=== PATIENT | male | born 1975 | race Caucasian/White ===

== ENCOUNTER 2019-03-09 21:17 | Inpatient (IN) | payer MEDICAID, OTHER ==
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
[2019-03-10 00:50] LABS: Glucose,Whole Blood 125 mg/dL (75-99)
[2019-03-10 00:53] LABS: Amphetamine Screen,Urine Detected (NotDetected); Barbiturate Screen,Urine Not Detected (NotDetected); Benzodiazepines Screen,Urine Not Detected (NotDetected); Cocaine Screen,Urine Not Detected (NotDetected); Methadone Screen, Urine Not Detected (NotDetected); Opiate Screen,Urine Not Detected (NotDetected); Oxycodone Screen, Urine Not Detected (NotDetected); Phencyclidine Screen,Urine Not Detected (NotDetected); Tricyclic Antidepressant,Urine Not Detected (NotDetected); Urn Cannabinoid Scrn Detected (NotDetected)
[2019-03-10] MEDS ORDERED: MAG HYDROX/AL HYDROX/SIMETH 30 ML CUP PO PRN (03:15)
[2019-03-10] MEDS ORDERED: ZIPRASIDONE 20 MG VIAL IM PRN (03:15)
[2019-03-10] MEDS ORDERED: MAGNESIUM HYDROXIDE 2,400 MG/10 ML CUP PO PRN (03:15)
[2019-03-10] MEDS: NICOTINE 14MG/24HR PATCH TRANSDERM SCH (09:28)
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
[2019-03-10] MEDS ORDERED: LISINOPRIL 20 MG TAB PO STA (15:08)
--- NOTE | 2019-03-10 15:15 | P.HPMEDMHU ---
History of Present Illness H&P Date: 03/10/19 Chief Complaint: MHU HPI The patient is a 43-year-old male with a past medical history of essential hypertension type 2 diabetes who is admitted to the inpatient psychiatry unit after being petitioned by police apparently the patient has been reporting suicidal ideation reporting that he wanted to kill himself and was found to be intoxicated on arrival to the ED, after sobering up the patient mentioned recent separation from his of 18 years approximately 2 weeks ago and since then has been doing drugs and renting a room from her friend. The patient reports being out of his metformin for the last week he does not know his A1c and see last saw his PCP approximately a year ago. She denies being on any medications for his hypertension, he denies any chest pain, denies shortness of breath, denies focal weakness or slurred speech, he denies any paresthesias numbness and tingling in his legs or any of his extremities. Patient has no somatic complaints today. In the ER he had a UDS performed was positive for amphetamines and THC, review of his vital signs indicate elevated blood pressures. Review of Systems Pertinent positives per HPI all other review is otherwise negative Past Medical History Past Medical History: Diabetes Mellitus, Hypertension History of Any Multi-Drug Resistant Organisms: None Reported Additional Past Surgical History / Comment(s): vasectomy Past Psychological History: Anxiety, Depression Smoking Status: Current every day smoker Past Alcohol Use History: Occasional Past Drug Use History: Marijuana, Methamphetamine Medications and Allergies Home Medications Medication Instructions Recorded Confirmed Type ARIPiprazole [Abilify] 10 mg PO DAILY 03/10/19 03/10/19 History DULoxetine HCL [Cymbalta] 60 mg PO BID 03/10/19 03/10/19 History Dextroamphetamine/Amphetamine 25 mg PO QAM 03/10/19 03/10/19 History [Adderall Xr] Dextroamphetamine/Amphetamine 10 mg PO DAILY 03/10/19 03/10/19 History [Adderall] OXcarbazepine [Trileptal] 150 mg PO BID 03/10/19 03/10/19 History Allergies Allergy/AdvReac Type Severity Reaction Status Date / Time No Known Allergies Allergy Verified 03/10/19 12:02 Physical Exam Vitals: Vital Signs Temp Pulse Pulse Resp BP BP Pulse Ox 03/10/19 05:48 98.2 F 96 16 145/94 03/10/19 03:21 100 18 188/58 95 03/09/19 21:18 98.5 F 111 H 20 135/93 100 Intake and Output 03/09/19 03/10/19 03/10/19 22:59 06:59 14:59 Other: Weight 70.307 kg 68 kg Constitutional: No acute distress, conversant, pleasant Eyes: Anicteric sclerae, moist conjunctiva, no lid-lag, PERRLA ENMT: NC/AT,Oropharynx clear, no erythema, exudates Neck:Supple, FROM, no masses, or JVD, No carotid bruits; No thyromegaly Lungs: Clear to auscultation, Clear to percussion, Normal respiratory effort, no accessory muscle use Cardiovascular: Heart regular in rate and rhythm, No murmurs, gallops, or rubs no peripheral edema Abdominal: Soft Nontender, nom distended, no guarding, no rebound or rigidity, Normoactive bowel sounds No hepatomegaly, No splenomegaly, No palpable mass No abdominal wall hernia noted Skin: Normal temperature, tone, texture, turgor, No induration No subcutaneous nodules, No rash, lesions, No ulcers Extremities:No digital cyanosis No clubbing, Pedal pulses intact and symmetrical Radial pulses intact and symmetrical Normal gait and station, No calf tenderness Psychiatric: Alert and oriented to person, flat affect suicidal ideation or poor judgment and insight Neuro: Muscles Strength 5/5 in all 4 extremities, Sensation to light touch grossly present throughout, Cranial nerves II-XII grossly intact. No focal sensory deficits Cranial Nerve Examination - Cranial Nerves Cranial Nerve II- Optic: Intact Cranial Nerve III- Oculomotor: Intact Cranial Nerve IV- Trochlear: Intact Cranial Nerve V- Trigeminal: Intact Cranial Nerve - Abducens: Intact Cranial Nerve VII- Facial: Intact Cranial Nerve VIII- Auditory: Intact Cranial Nerve IX- Glossopharyngeal: Intact Cranial Nerve X- Vagus: Intact Cranial Nerve XI- Accessory: Intact Cranial Nerve XII- Hypoglossal: Intact Results Labs: Abnormal Lab Results - Last 24 Hours (Table) 03/10/19 03/10/19 Range/Units 00:30 00:40 POC Glucose (mg/dL) 125 H (75-99) mg/dL Ur Amphetamines Screen Detected H (NotDetected) U Marijuana (THC) Screen Detected H (NotDetected) Assessment and Plan Assessment: Uncontrolled hypertension Type 2 diabetes ADHD Marijuana abuse Depression with suicidal ideation Adjustment disorder Plan: The patient is admitted to acute inpatient psychiatry team after being petitioned by police with suicidal ideation, will defer to inpatient team regarding ongoing psychotropic and cognitive behavioral therapies. Medically the patient blood pressure is elevated and uncontrolled we'll initiate him on lisinopril 20 mg PO daily, awaiting urinalysis, and A1c. We'll find out his previous metformin dose and initiate him on that therapy. I will continue to follow his clinical course. Appreciate this consult and operation to be involved in this patient's ongoing care. For further questions please not hesitate to contact the [facility] inpatient team
[2019-03-11 08:47] LABS: ALT 15 U/L (4-49); AST 25 U/L (17-59); African American GFR (CKD) >90 (>60 ml/min/1.73 sqM); Albumin 4.5 g/dL (3.5-5.0); Alkaline Phosphatase 90 U/L (38-126); Anion Gap 9 mmol/L; Bilirubin, Delta 0.2 mg/dL (0.0-0.2); Bilirubin,Unconjugated 0.5 mg/dL (0.0-1.1); Blood Urea Nitrogen 11 mg/dL (9-20); Calcium 9.9 mg/dL (8.4-10.2); Carbon Dioxide 28 mmol/L (22-30); Chloride 103 mmol/L (98-107); Cholesterol 161 mg/dL (<200); Glucose 200 mg/dL (74-99); HDL Cholesterol 47 mg/dL (40-60); LDL Cholesterol,Calculated 78 mg/dL (0-99); Non-African American GFR(CKD) >90 (>60 ml/min/1.73 sqM); Potassium 4.5 mmol/L (3.5-5.1); Sodium 140 mmol/L (137-145); Total Bilirubin 0.7 mg/dL (0.2-1.3); Total Protein 7.2 g/dL (6.3-8.2); Triglycerides 182 mg/dL (<150)
[2019-03-11 09:03] LABS: Basophils # (A) 0.1 k/uL (0-0.2); Basophils % (A) 1 %; Eosinophils # (A) 0.2 k/uL (0-0.7); Eosinophils % (A) 4 %; HCT 48.2 % (39.0-53.0); HGB 16.4 gm/dL (13.0-17.5); Lymphocytes # (A) 1.4 k/uL (1.0-4.8); Lymphocytes % (A) 21 %; MCH 32.8 pg (25.0-35.0); MCV 96.3 fL (80.0-100.0); Mean Platelet Volume 8.2; Monocytes # (A) 0.3 k/uL (0-1.0); Monocytes % (A) 5 %; Neutrophils # (A) 4.5 k/uL (1.3-7.7); Neutrophils % (A) 68 %; Platelet Count 299 k/uL (150-450); WBC 6.6 k/uL (3.8-10.6)
[2019-03-11] MEDS: NICOTINE 14MG/24HR PATCH TRANSDERM SCH (09:24)
[2019-03-11] MEDS: LISINOPRIL 20 MG TAB PO SCH (09:25)
[2019-03-11] MEDS: LORazepam 1 MG TAB PO PRN ×2 (09:30→18:25)
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
[2019-03-11] MEDS: OXcarbazepine 150 MG TAB PO SCH ×2 (13:17→21:53)
[2019-03-11] MEDS: ARIPiprazole 10 MG TAB PO SCH (13:50)
[2019-03-11] MEDS: ESCITALOPRAM 5 MG TAB PO SCH (13:50)
[2019-03-11 20:52] LABS: Hemoglobin A1C 6.9 % (4.0-6.0)
[2019-03-12] MEDS: ESCITALOPRAM 5 MG TAB PO SCH (08:12)
[2019-03-12] MEDS: NICOTINE 14MG/24HR PATCH TRANSDERM SCH (08:12)
[2019-03-12] MEDS: LISINOPRIL 20 MG TAB PO SCH (08:12)
[2019-03-12] MEDS: ARIPiprazole 10 MG TAB PO SCH (08:12)
[2019-03-12] MEDS: OXcarbazepine 150 MG TAB PO SCH ×2 (08:12→22:10)
[2019-03-12] MEDS: LORazepam 1 MG TAB PO PRN ×2 (08:13→17:58)
--- NOTE | 2019-03-12 19:24 | P.PN ---
Progress Note - Text Progress Note Date: 03/12/19 interval history: Patient again is seen in cross coverage today. He talks about wanting to be able to be discharged. He has been talking to his . He feels like his mood is doing fine. He slept well last night. He does not voice any adverse psychotropic medication side effects. We did talk about looking at a support meeting being set up for him. He states that he would be following up with his outpatient psychiatrist and counselor. Mental status exam: He is alert and cooperative with the interview. His mood him she relays is doing fine. He does not verbalize any thoughts of harm to self or others. No evidence of psychosis or agitation. His affect overall is restricted. His thought processes are organized. Plan: Patient will be maintained on current psychotropic medication regimen. He seems to be tolerating the Lexapro well. Continue to monitor for any medication side effects and monitor ongoing response to treatment. He is inquiring regarding discharge planning, we did discuss him looking at setting up a support meeting.
[2019-03-13] MEDS: OXcarbazepine 150 MG TAB PO SCH ×2 (08:39→21:20)
[2019-03-13] MEDS: ARIPiprazole 10 MG TAB PO SCH (08:39)
[2019-03-13] MEDS: LISINOPRIL 20 MG TAB PO SCH (08:39)
[2019-03-13] MEDS: NICOTINE 14MG/24HR PATCH TRANSDERM SCH (08:40)
[2019-03-13] MEDS: ESCITALOPRAM 5 MG TAB PO SCH (08:41)
--- NOTE | 2019-03-13 13:59 | P.CON ---
Consult Note - . Consult date: 03/13/19 Assessment/Plan:: Chief complaint: "I don't need to be here " Subjective: The patient has been seen today as follow-up, chart reviewed, case discussed with the treatment team. Patient slept about 6 hours last night. Patient has not been going to groups and other unit activities. Patient reports fair appetite. Patient was fixated on discharge and generally minimizes psychiatric symptoms. He was talking about the reason for his admission because he was misunderstood and he never been suicidal. Patient reports having an outpatient psychiatrist and willing to continue his outpatient psychiatric treatment after discharge. He denies suicidal or homicidal ideation and he denies feeling depressed, hopeless, or worthless. He expressed feeling angry about his admission, and he is willing to submit 72 hours letter to be discharged. The patient is compliant with his medications and denies any adverse reactions. The patient denies any manic symptoms including sustained period of time with elevated or irritable mood, impulsive or irrational behavior, inflated self- esteem, or absence need to sleep due to increases goal-directed activities. The patient denies any auditory or visual hallucinations. Also the patient denies any paranoid ideation. Objective: Vitals has been reviewed. Mental status examination; Appearance: The patient appears stated age, fairly groomed, average body built, no specific features. Gait/posture: Normal gait, Normal arm swinging: No abnormal movements. Attitude and behavior: Not fully engaged, not fully cooperative, interrupted eye contact. Motor activity: Normal psychomotor activity Speech: Normal rate, volume, not pressured Mood: Anxious, irritable Affect: Restricted Thought form: goal-directed, linear, coherent. Thought content: Non-delusional, denies suicidal thoughts, denies homicidal thoughts, denies intentions or plans. Perception: Denies any auditory or visual hallucinations Attention: No impairment. Orientation: Patient patient was oriented to time place person and situation. Insight: Patient has limited insight about psychiatric disorder. Judgment: Patient has limited judgment about his psychiatric treatment. Assessment: Major depressive disorder, recurrent, moderate. History of adult attention deficit disorder. Cannabis use disorder, mild. Alcohol use disorder, mild. Plan: Continue inpatient level of care due to need for further stabilization on medications Precautions: Continue 15 minutes check for safety. Consider medical consultation if any acute medical issues arise. Provide the patient individual, group therapy, substance use disorder counseling to give better insight and learn coping skills. Medications: Continue Abilify 10 mg daily for mood stabilization. Continue Trileptal 150 mg twice daily for mood stabilization. Continue Lexapro 5 mg daily for depression and anxiety. Patient was on Cymbalta 60 mg twice daily before this admission and he didn't benefit from the maximum dose so he was a switch to Lexapro. Discharge patient to OUTPATIENT services upon a stabilization Expected LOS: 1-2 days
[2019-03-13] MEDS: LORazepam 1 MG TAB PO PRN (16:11)
[2019-03-13] MEDS: ACETAMINOPHEN TAB 325 MG TAB PO PRN (16:11)
[2019-03-14] MEDS: LORazepam 1 MG TAB PO PRN ×3 (01:13→18:07)
[2019-03-14] MEDS: NICOTINE 14MG/24HR PATCH TRANSDERM SCH (09:00)
[2019-03-14] MEDS: LISINOPRIL 20 MG TAB PO SCH (09:01)
[2019-03-14] MEDS: ARIPiprazole 10 MG TAB PO SCH (09:01)
[2019-03-14] MEDS: OXcarbazepine 150 MG TAB PO SCH ×2 (09:01→21:53)
[2019-03-14] MEDS: ESCITALOPRAM 5 MG TAB PO SCH (09:01)
--- NOTE | 2019-03-14 14:39 | P.PN ---
Progress Note - Text Progress Note Date: 03/14/19 Chief complaint: "I want to go home " Subjective: The patient has been seen today as follow-up, chart reviewed, case discussed with the treatment team. Patient slept about 7 hours last night, and reports fair appetite. Patient reports need to be discharged and denies feeling depressed, hopeless, worthless, or suicidal. He reports plan to continue psychiatric treatment after discharge with his outpatient psychiatrist. Patient reports willing to get back with his after discharge and if she refused him back home he would find another place to stay. According to the nursing staff, patient's called the unit and he reported that he is not welcome going back home. Patient denies any manic or psychotic symptoms, and he continued to report that dwelling to attend group therapy because "I have been through this groups many times before." The patient is compliant with his medications and denies any adverse reactions. Objective: Vitals has been reviewed. Mental status examination; Appearance: The patient appears stated age, fairly groomed, average body built, no specific features. Gait/posture: Normal gait, Normal arm swinging: No abnormal movements. Attitude and behavior: engaged, cooperative, fair eye contact. Motor activity: Normal psychomotor activity Speech: Normal rate, volume, not pressured Mood: Anxious Affect: Restricted Thought form: goal-directed, linear, coherent. Thought content: Non-delusional, denies suicidal thoughts, denies homicidal thoughts, denies intentions or plans. Perception: Denies any auditory or visual hallucinations Attention: No impairment. Orientation: Patient patient was oriented to time place person and situation. Insight: Patient has fair insight about psychiatric disorder. Judgment: Patient has fair judgment about his psychiatric treatment. Assessment: Major depressive disorder, recurrent, moderate. History of adult attention deficit disorder. Cannabis use disorder, mild. Alcohol use disorder, mild. Plan: Continue inpatient level of care due to need for further stabilization on medications and for discharge planning Precautions: Continue 15 minutes check for safety. Consider medical consultation if any acute medical issues arise. Provide the patient individual, group therapy, substance use disorder counseling to give better insight and learn coping skills. Medications: Continue Abilify 10 mg daily for mood stabilization. Continue Trileptal 150 mg twice daily for mood stabilization. Continue Lexapro 5 mg daily for depression and anxiety. Patient was on Cymbalta 60 mg twice daily before this admission and he didn't benefit from the maximum dose so he was a switch to Lexapro. Discharge patient to OUTPATIENT services upon a stabilization Expected LOS: 1-2 days
[2019-03-14] MEDS: ACETAMINOPHEN TAB 325 MG TAB PO PRN (18:07)
[2019-03-15] MEDS: LORazepam 1 MG TAB PO PRN ×3 (03:38→20:16)
[2019-03-15] MEDS: ESCITALOPRAM 5 MG TAB PO SCH (10:19)
[2019-03-15] MEDS: NICOTINE 14MG/24HR PATCH TRANSDERM SCH (10:20)
[2019-03-15] MEDS: LISINOPRIL 20 MG TAB PO SCH (10:20)
[2019-03-15] MEDS: OXcarbazepine 150 MG TAB PO SCH ×2 (10:20→20:16)
[2019-03-15] MEDS: ARIPiprazole 10 MG TAB PO SCH (10:21)
[2019-03-15 10:24] VITALS: RESP 16
--- NOTE | 2019-03-15 13:06 | P.PN ---
Progress Note - Text Progress Note Date: 03/15/19 Chief complaint: "I'm waiting to be discharged " Subjective: The patient has been seen today as follow-up, chart reviewed, case discussed with the treatment team. Patient reports good sleep last night and he denies any appetite problems. Patient continued to be fixated on discharge, and he c ontinued to deny any symptoms of depression, anxiety, or severe mood swings. Patient reports feeling stable emotionally and denies feeling depressed, hopeless, worthless, or suicidal. He denies any severe anxiety, racing thoughts, mood swings, irritability, or agitation. Patient denies any manic or psychotic symptoms. He continued to take his medications and he denies any side effects. Patient reports not wanting to attend groups because he has been in groups before and he doesn't feel any benefit from going to groups. Objective: Vitals has been reviewed. Mental status examination; Appearance: The patient appears stated age, fairly groomed, average body built, no specific features. Gait/posture: Normal gait, Normal arm swinging: No abnormal movements. Attitude and behavior: engaged, cooperative, fair eye contact. Motor activity: Normal psychomotor activity Speech: Normal rate, volume, not pressured Mood: Anxious Affect: Restricted Thought form: goal-directed, linear, coherent. Thought content: Non-delusional, denies suicidal thoughts, denies homicidal thoughts, denies intentions or plans. Perception: Denies any auditory or visual hallucinations Attention: No impairment. Orientation: Patient patient was oriented to time place person and situation. Insight: Patient has fair insight about psychiatric disorder. Judgment: Patient has fair judgment about his psychiatric treatment. Assessment: Major depressive disorder, recurrent, moderate. History of adult attention deficit disorder. Cannabis use disorder, mild. Alcohol use disorder, mild. Plan: Continue inpatient level of care due to need for further stabilization on medications and for discharge planning Precautions: Continue 15 minutes check for safety. Consider medical consultation if any acute medical issues arise. Provide the patient individual, group therapy, substance use disorder counseling to give better insight and learn coping skills. Medications: Continue Abilify 10 mg daily for mood stabilization. Continue Trileptal 150 mg twice daily for mood stabilization. Continue Lexapro 5 mg daily for depression and anxiety. Patient was on Cymbalta 60 mg twice daily before this admission and he didn't benefit from the maximum dose so he was a switch to Lexapro. Discharge patient to OUTPATIENT services upon a stabilization Expected LOS: Plan for discharge tomorrow
[2019-03-16 06:23] VITALS: BP 106/64; PULSE 64; TEMP 98.7
[2019-03-16] MEDS: NICOTINE 14MG/24HR PATCH TRANSDERM SCH (08:39)
[2019-03-16] MEDS: ARIPiprazole 10 MG TAB PO SCH (08:39)
[2019-03-16] MEDS: LISINOPRIL 20 MG TAB PO SCH (08:39)
[2019-03-16] MEDS: ESCITALOPRAM 5 MG TAB PO SCH (08:39)
[2019-03-16] MEDS: OXcarbazepine 150 MG TAB PO SCH (08:40)
[2019-03-16] MEDS: LORazepam 1 MG TAB PO PRN (08:40)
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
== END 2019-03-16 15:41 | disposition home or self-care (01) | DRG 885 ==
LOC: EC 21:17 → 3MHU 03-10 03:09
PROVIDERS: ADMIT Psychiatry & Neurology Psychiatry; ATTEND Psychiatry & Neurology Psychiatry
DX: F33.1 Major depressive disorder, recurrent, moderate (principal); F10.99 Alcohol use, unspecified with unspecified alcohol-induced disorder; R45.851 Suicidal ideations; E11.9 Type 2 diabetes mellitus without complications; F12.99 Cannabis use, unspecified with unspecified cannabis-induced disorder; F17.200 Nicotine dependence, unspecified, uncomplicated; I10 Essential (primary) hypertension; Z81.8 Family history of other mental and behavioral disorders; Z98.52 Vasectomy status
CPT/HCPCS: 36415; 80053; 80061; 80306; 82075; 82248; 83036; 84443; 85025; 99285